=== PATIENT | female | born 2000 | race Caucasian/White ===

== ENCOUNTER 2019-02-25 17:17 | Emergency (ER) | payer OTHER ==
[2019-02-25] MEDS ORDERED: NS 1,000 ML IV ONE (17:49)
[2019-02-25] MEDS ORDERED: HYDROmorphONE/DILAUDID 2 MG/ML INJ IVP ONE (17:49)
--- NOTE | 2019-02-25 18:11 | EDPHY ---
H & P Stated Complaint: Right sided abdominal pain, nauseated Time Seen by Provider: 02/25/19 17:41 HPI/ROS: Chief complaint: Abdominal pain History of present illness: This is a 18-year-old female who presents to the emergency department for abdominal pain. Patient reports the onset of symptoms over the last day. She describes a sharp pain in the right, lower aspect of the abdomen. Pain is persistent. She has had associated chills as well as nausea without vomiting, and an episode of loose stools. She denies precipitating factors. She denies alleviating factors. She denies other associated signs or symptoms including no specific fevers, no urinary symptoms. She has never had similar. Review of systems: A 10 point review of systems was obtained and other than described above was negative - Personal History LMP (Females 10-55): IUD In Place Current Tetanus Diphtheria and Acellular Pertussis (TDAP): Yes - Medical/Surgical History Hx Asthma: Yes Hx Chronic Respiratory Disease: No Hx Diabetes: No Hx Cardiac Disease: No Hx Renal Disease: No Hx Cirrhosis: No Hx Alcoholism: No Hx HIV/AIDS: No Hx Splenectomy or Spleen Trauma: No - Social History Smoking Status: Never smoked - Physical Exam Exam: General Appearance: Alert, nontoxic. Eyes: Pupils equal and round no pallor or injection. ENT, Mouth: Mucous membranes moist. Respiratory: There are no retractions, lungs are clear to auscultation. Cardiovascular: Regular rate and rhythm. Gastrointestinal: Bowel sounds normal. Abdomen is soft and nondistended. There is tenderness to palpation the right lower quadrant at McBurney's as well as inferior to McBurney's. Point of maximal intensity is inferior to McBurney' s more over the right anterior pelvis. Neurological: Alert and oriented. Skin: Warm and dry, no rashes. Musculoskeletal: Neck is supple non tender. Extremities are symmetrical, full range of motion. Psychiatric: Patient is oriented X 3, there is no agitation. Constitutional: Initial Vital Signs Temperature (C) 36.8 C 02/25/19 17:19 Heart Rate 98 02/25/19 17:19 Respiratory Rate 14 02/25/19 17:19 Blood Pressure 127/76 H 02/25/19 17:19 O2 Sat (%) 99 02/25/19 17:19 O2 Delivery Mode Room Air Allergies/Adverse Reactions: No Known Allergies Allergy (Unverified 02/25/19 17:19) Home Medications: Medication Instructions Recorded Escitalopram Oxalate 02/25/19 VYVANSE 02/25/19 Medical Decision Making - Diagnostics Imaging Results: Imaging Impressions Abdomen Ultrasound 02/25/19 17:49 Impression: 1. Simple right ovarian cyst. 2. Normal-appearing retroflexed uterus with IUD in good position in the endometrial canal. 3. A dilated appendix is not visualized in the right lower quadrant, however, a normal appendix was not positively identified. Findings discussed with GALINA Triana at 20:26 hour, 02/25/2019. Pelvic/Renal Ultrasound 02/25/19 17:49 Impression: 1. Simple right ovarian cyst. 2. Normal-appearing retroflexed uterus with IUD in good position in the endometrial canal. 3. A dilated appendix is not visualized in the right lower quadrant, however, a normal appendix was not positively identified. Findings discussed with GALINA Triana at 20:26 hour, 02/25/2019. Imaging: Discussed imaging studies w/ weight caller Radiologist ED Course/Re-evaluation: Patient is discussed with my secondary supervising physician Dr. Howard Ordaz. Patient presents to the emergency department primarily for right-sided lower abdominal pain. She is nontoxic. Vital signs are stable. Tenderness to palpation of the lower abdomen primarily over the right anterior pelvic region. No guarding or other peritoneal signs. Repeat abdominal exam remains benign. Blood studies unremarkable. Ultrasound does confirm a right ovarian cyst without evidence of complications such as torsion. Appendix not visualized, however my suspicion is low as discomfort appears lower than McBurney's point, she has no white count, she has no fever and a good explanation for her pain. I do not believe further imaging studies are warranted at this time. Symptomatic care is discussed. She is to follow up with an OBGYN or a primary care doctor for recheck and referral information is given. Strict return precautions are given. The patient voiced understanding and agreement with plan. Differential Diagnosis: Included but not limited to appendicitis, colitis, urinary tract disease, ovarian cyst, ovarian torsion, an associated complications - Data Points Laboratory Results: Laboratory Results 02/25/19 18:00 02/25/19 18:00 02/25/19 02/25/19 02/25/19 18:00 18:00 18:00 WBC 8.57 10^3/uL 10^3/uL (3.80-9.50) RBC 4.59 10^6/uL 10^6/uL (4.18-5.33) Hgb 15.1 g/dL g/dL (12.6-16.3) Hct 44.2 % % (38.0-47.0) MCV 96.3 fL fL (81.5-99.8) MCH 32.9 pg pg (27.9-34.1) MCHC 34.2 g/dL g/dL (32.4-36.7) RDW 12.2 % % (11.5-15.2) Plt Count 345 10^3/uL 10^3/uL (150-400) MPV 9.6 fL fL (8.7-11.7) Neut % (Auto) 56.5 % % (39.3-74.2) Lymph % (Auto) 31.7 % % (15.0-45.0) Christian % (Auto) 9.7 % % (4.5-13.0) Eos % (Auto) 1.2 % % (0.6-7.6) Baso % (Auto) 0.8 % % (0.3-1.7) Nucleat RBC Rel Count 0.0 % % (0.0-0.2) Absolute Neuts (auto) 4.84 10^3/uL 10^3/uL (1.70-6.50) Absolute Lymphs (auto) 2.72 10^3/uL 10^3/uL (1.00-3.00) Absolute Monos (auto) 0.83 10^3/uL H 10^3/uL (0.30-0.80) Absolute Eos (auto) 0.10 10^3/uL 10^3/uL (0.03-0.40) Absolute Basos (auto) 0.07 10^3/uL 10^3/uL (0.02-0.10) Absolute Nucleated RBC 0.00 10^3/uL 10^3/uL (0-0.01) Immature Gran % 0.1 % % (0.0-1.1) Immature Gran # 0.01 10^3/uL 10^3/uL (0.00-0.10) Sodium 138 mEq/L mEq/L (135-145) Potassium 3.7 mEq/L mEq/L (3.5-5.2) Chloride 102 mEq/L mEq/L (97-110) Carbon Dioxide 26 mEq/l mEq/l (22-31) Anion Gap 10 mEq/L mEq/L (6-14) BUN 10 mg/dL mg/dL (7-23) Creatinine 0.6 mg/dL mg/dL (0.6-1.0) Estimated GFR > 60 Glucose 90 mg/dL mg/dL (70-100) Calcium 9.7 mg/dL mg/dL (8.5-10.4) Total Bilirubin 0.8 mg/dL mg/dL (0.1-1.4) Conjugated Bilirubin 0.2 mg/dL mg/dL (0.0-0.5) Unconjugated Bilirubin 0.6 mg/dL mg/dL (0.0-1.1) AST 31 IU/L IU/L (14-46) ALT 31 IU/L IU/L (9-52) Alkaline Phosphatase 58 IU/L IU/L (38-126) Total Protein 7.1 g/dL g/dL (6.3-8.2) Albumin 4.2 g/dL g/dL (3.5-5.0) Lipase 92 IU/L IU/L (23-300) Beta HCG, Qual NEGATIVE Urine Color Urine Appearance Urine pH Ur Specific [place] Urine Protein Urine Ketones Urine Blood Urine Nitrate Urine Bilirubin Urine Urobilinogen Ur Leukocyte Esterase Urine RBC Urine WBC Ur Epithelial Cells Urine Bacteria Urine Glucose 02/25/19 17:46 WBC RBC Hgb Hct MCV MCH MCHC RDW Plt Count MPV Neut % (Auto) Lymph % (Auto) Christian % (Auto) Eos % (Auto) Baso % (Auto) Nucleat RBC Rel Count Absolute Neuts (auto) Absolute Lymphs (auto) Absolute Monos (auto) Absolute Eos (auto) Absolute Basos (auto) Absolute Nucleated RBC Immature Gran % Immature Gran # Sodium Potassium Chloride Carbon Dioxide Anion Gap BUN Creatinine Estimated GFR Glucose Calcium Total Bilirubin Conjugated Bilirubin Unconjugated Bilirubin AST ALT Alkaline Phosphatase Total Protein Albumin Lipase Beta HCG, Qual Urine Color COLORLESS Urine Appearance CLEAR Urine pH 8.0 H (5.0-7.5) Ur Specific [place] 1.002 (1.002-1.030) Urine Protein NEGATIVE (NEGATIVE) Urine Ketones NEGATIVE (NEGATIVE) Urine Blood NEGATIVE (NEGATIVE) Urine Nitrate NEGATIVE (NEGATIVE) Urine Bilirubin NEGATIVE (NEGATIVE) Urine Urobilinogen NEGATIVE EU EU (0.2-1.0) Ur Leukocyte Esterase NEGATIVE (NEGATIVE) Urine RBC 1-3 /hpf /hpf (0-3) Urine WBC 1-3 /hpf /hpf (0-3) Ur Epithelial Cells TRACE /lpf /lpf (NONE-1+) Urine Bacteria 2+ /hpf H /hpf (NONE SEEN) Urine Glucose NEGATIVE (NEGATIVE) Medications Given: Discontinued Medications Hydromorphone HCl (Dilaudid) 0.5 mg IVP EDNOW ONE Stop: 02/25/19 17:50 Last Admin: 02/25/19 18:03 Dose: 0.5 mg Sodium Chloride (Ns) 1,000 mls @ 0 mls/hr IV EDNOW ONE; Wide Open PRN Reason: Protocol Stop: 02/25/19 17:50 Last Admin: 02/25/19 18:03 Dose: 1,000 mls Ketorolac Tromethamine (Toradol) 15 mg IVP EDNOW ONE Stop: 02/25/19 20:23 Last Admin: 02/25/19 20:31 Dose: 15 mg Departure - Departure Disposition: Home, Routine, Self-Care Clinical Impression: Ovarian cyst Qualifiers: Laterality: right Qualified Code(s): N83.201 - Unspecified ovarian cyst, right side Condition: Good Instructions: Ovarian Cyst (ED) Additional Instructions: Follow-up with a primary care doctor for continued evaluation and care Use ibuprofen 600 mg 3 times a day for the next 2-3 days for pain control If pain persists you can also take 650 to a 1000 mg of Tylenol every 6 hr If symptoms worsen or new symptoms develop including the development of fever, vomiting, increasing pain or other signs or symptoms please return to the emergency department for recheck immediately Referrals: NONE *PRIMARY CARE P,. [Primary Care Provider] - As per Instructions Elisabeth Sherman DO [Doctor of Osteopathy] - As per Instructions Kurt Marin MD [Medical Doctor] - As per Instructions
[2019-02-25 18:24] LABS: PLATELET COUNT 345 10^3/uL (150-400)
[2019-02-25] MEDS ORDERED: KETOROLAC 30 MG/1 ML SDV IVP ONE (20:22)
[2019-02-25 20:37] VITALS: BP 126/72
== END 2019-02-25 20:37 | disposition home or self-care (01) ==
DX: N83.201 Unspecified ovarian cyst, right side (principal); E86.9 Volume depletion, unspecified
CPT/HCPCS: 96374; J1170; J1885

== ENCOUNTER 2019-04-19 12:54 | Emergency (ER) | payer OTHER | END 2019-04-19 13:15 | disposition left against medical advice (07) ==